=== PATIENT | male | born 1970 | race African-American/Black ===

== ENCOUNTER 2019-05-26 14:51 | Observation (INO) | payer MEDICARE ==
[2019-05-26] MEDS ORDERED: Nitroglycerin 0.4 MG TAB (25 Tab Bottle) PO PRN (17:31)
[2019-05-26] MEDS ORDERED: hydrALAZINE 20 MG/ML VIAL SLOW IVP PRN (17:33)
[2019-05-26] MEDS ORDERED: Aspirin 325 mg Enteric Coated Tablet PO SCH (17:45)
--- NOTE | 2019-05-26 17:46 | HP ---
PRIMARY CARE PROVIDER: Dr. Kelly Adames. CHIEF COMPLAINT: Chest pain. HISTORY OF PRESENT ILLNESS: Mr. Jang is a pleasant 48-year-old gentleman, who was seen at [facility] on May 26, 2019. He reports that he was doing well until 4 days ago. At that time, he developed pain under the left nipple. He reports that it subsequently migrated to the retrosternal region. It was constant, sharp, 8/10 to 9/10 at its worst, nonpleuritic, nonexertional, not accompanied by diaphoresis or lightheadedness, not accompanied by nausea, accompanied by mild shortness of breath. He took Tums and Pepcid with mild relief. Two days after starting, the pain resolved. He reports onset of similar pain last night. At this time, the pain features are similar. He reports that the pain is on and off. He reports that his pain is currently 2/10. REVIEW OF SYSTEMS: All systems were reviewed and found to be negative except for the pertinent positives mentioned above. PAST MEDICAL HISTORY: Chronic left knee pain and hypertension. PAST SURGICAL HISTORY: Pelvic bone repair and left knee replacement. SOCIAL HISTORY: The patient drinks 6 pack of beer a day. He smokes 1 pack of cigarettes a day. He denies any recreational drug use. FAMILY HISTORY: He denies any family history of coronary artery disease. ALLERGIES: NO KNOWN DRUG ALLERGIES. CURRENT MEDICATIONS: 1. Toprol-XL 100 mg daily. 2. Lisinopril/hydrochlorothiazide 20/25 mg daily. 3. [place] p.r.n. 4. Amlodipine 5 mg daily. PHYSICAL EXAMINATION: GENERAL: On examination, Mr. Jang is awake and alert, not in acute distress. He is obese. VITAL SIGNS: Blood pressure is 167/111, pulse rate 70, respiratory rate 18, and oxygen saturation 99% on room air. He is afebrile. EYES: No scleral icterus. No conjunctival pallor. ENT: Moist mucosal membranes. No oropharyngeal erythema or exudates. NECK: Supple, nontender, trachea is midline. RESPIRATORY: Accessory muscles of breathing are not active. Chest wall movements are symmetric bilaterally. LUNGS: Clear to auscultation without wheeze, rhonchi, or crepitations. CARDIOVASCULAR: S1 and S2 are heard, regular. Peripheral pulses palpable. ABDOMEN: Soft, nontender, and bowel sounds heard. NEUROLOGIC: Cranial nerves II through XII are intact. MUSCULOSKELETAL: Power is 5/5 in all 4 extremities. SKIN: No rashes or subcutaneous nodules. LYMPHATIC: No cervical lymphadenopathy. PSYCHIATRIC: Normal mood, normal affect, the patient is oriented to person, place, and time. LABORATORY DATA: Mr. Jang's labs and investigations were reviewed. I reviewed his electrocardiogram from 1220 hours today, which shows normal sinus rhythm, no ST changes to suggest an acute coronary syndrome. I also reviewed his chest x-ray, which does not show any pulmonary infiltrates. He has normal white count, normal hemoglobin, normal platelet count, normal troponin I, BNP mildly elevated at 165, normal sodium, normal potassium, and normal creatinine. LFTs are normal. ASSESSMENT AND PLAN: Mr. Jang is a pleasant 48-year-old gentleman, who was seen at [facility] on May 26, 2019. His problem list includes: 1. Chest pain: Mr. Jang is presenting with chest pain. 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 We will recheck troponin. We will obtain stress test. Further management depending on outcome of this test. 2. Hypertensive urgency: We will resume home medications, monitor vital signs, and titrate antihypertensives as needed. 3. Tobacco abuse: The patient has been counseled regarding tobacco cessation. We will start nicotine replacement therapy. 4. Obesity: The patient certainly has risk factors for obstructive sleep apnea. Given his elevated blood pressures, he will likely benefit from polysomnography as outpatient. Many thanks for allowing me to participate in your patient's care. Please feel free to contact me with any questions or concerns. LEVEL OF RISK: High. LEVEL OF COMPLEXITY: High. Job ID: [id number]
[2019-05-26] MEDS ORDERED: Nicotine 21 MG PATCH TD SCH (18:00)
[2019-05-26 19:29] LABS: Troponin I 0.011 ng/mL (< 0.028)
[2019-05-26 20:15] VITALS: BMI 35.6
[2019-05-26] MEDS ORDERED: Amlodipine 5 MG TAB PO SCH (21:15)
[2019-05-26] MEDS: HYDROcodone/Acetaminophen 10/325 mg Tablet PO PRN (21:23)
[2019-05-26 21:37] LABS: Troponin I 0.011 ng/mL (< 0.028)
[2019-05-27] MEDS: HYDROcodone/Acetaminophen 10/325 mg Tablet PO PRN (04:01)
[2019-05-27] MEDS ORDERED: Aspirin 325 mg Enteric Coated Tablet PO SCH (09:00)
--- NOTE | 2019-05-27 11:31 | NM ---
MYOCARDIAL PERFUSION SCAN: The patient was given 10 mCi of Technetium sestamibi for rest imaging and 30 mCi for stress imaging. The patient was stressed according to adenosine protocol. INDICATION: Chest pain. FINDINGS: The left ventricle was imaged with SPECT imaging. Attenuation correction images obtained. There is normal activity throughout the left ventricle on stress images with attenuation correction. No evidence of reversible ischemia identified. Wall motion appears normal. Ejection fraction is recorded at 59%. IMPRESSION: No evidence of reversible ischemia. POS: RENATO
[2019-05-27] MEDS ORDERED: Lisinopril/Hydrochlorothiazide 20/25 mg Tablet PO SCH (12:00)
--- NOTE | 2019-05-27 15:40 | CT ---
CT ANGIOGRAM THORAX WITH CONTRAST: (CTA pulmonary angiogram) DATE: 05/27/2019 HISTORY: 48-year-old male with chest pain. TECHNIQUE: IV injection of iodinated contrast. Scan acquisition timing attempted to coincide with iodinated contrast bolus reaching maximal density in pulmonary arteries. 3-D MIP reconstructions. FINDINGS: Pulmonary thromboembolism: None. Lungs: Clear. Pneumothorax: None. Pleural effusion: None. Thoracic aorta: No aneurysm or dissection. Mediastinum: No lymphadenopathy or other mass. Gina: No lymphadenopathy or other mass. IMPRESSION: Normal.
[2019-05-27 16:18] VITALS: BP 156/96; TEMP 98.3
[2019-05-27] MEDS ORDERED: Amlodipine 5 MG TAB PO SCH ×2 (21:00)
--- NOTE | 2019-05-27 22:57 | DIS ---
DATE OF ADMISSION: 05/26/2019 DATE OF DISCHARGE: 05/27/2019 PRIMARY CARE PROVIDER: Dr. Kelly Adames. DISCHARGE DIAGNOSES: 1. Chest pain. 2. Chest pain most likely secondary to musculoskeletal etiology. 3. Hypertensive urgency. CONDITION OF PATIENT ON THE DAY OF DISCHARGE: Stable. I assessed Mr. Jang on the day of discharge. He denies any chest pain or shortness of breath. Vital signs are stable. S1 and S2 are heard, regular. Lungs are clear to auscultation bilaterally. DISCHARGE MEDICATIONS: Amlodipine dose has been increased to 10 mg daily. Otherwise, no change was made to his pre-admission home medications as dictated on my history and physical note dated May 26, 2019. HOSPITAL COURSE: Mr. Jang is a pleasant 48-year-old gentleman, who was admitted to [facility] on May 26, 2019, for chest pain. Nuclear stress test did not show any evidence of reversible ischemia. Left ventricular ejection fraction was 59%. CT angiogram of the chest did not show any evidence of pulmonary embolism. The patient has been advised to try over the counter anti-inflammatories. He is also advised to check his blood pressure and heart rate 3 times a day and show the readings to his primary care provider. He has also been advised to discuss with primary care provider regarding referral to sleep specialist for possible sleep study. He is being discharged home in a stable condition. Many thanks for allowing me to participate in your patient's care. Please feel free to contact me with any questions or concerns. DISCHARGE DESTINATION: Home. Job ID: [id number]
[2019-05-28] MEDS ORDERED: Lisinopril/Hydrochlorothiazide 20/25 mg Tablet PO SCH (09:00)
[2019-05-28] MEDS ORDERED: Amlodipine 10 MG TAB PO SCH (09:00)
== END 2019-05-27 17:38 | disposition home or self-care (01) ==
LOC: ERS 14:51 → 2SW 20:07
PROVIDERS: ADMIT Internal Medicine; ATTEND Internal Medicine
DX: R07.2 Precordial pain (principal); I16.0 Hypertensive urgency; I10 Essential (primary) hypertension; G89.29 Other chronic pain; M25.562 Pain in left knee; F17.210 Nicotine dependence, cigarettes, uncomplicated; E66.9 Obesity, unspecified; Z68.35 Body mass index [BMI] 35.0-35.9, adult; Z79.899 Other long term (current) drug therapy; Z96.652 Presence of left artificial knee joint
CPT/HCPCS: 71275; 78452; 84484; 85379; 93005; 93017; 94760 ×2; 99285; A9500; G0378 ×3; 36415; J0153